=== PATIENT | male | born 1965 | race Caucasian/White ===

== ENCOUNTER 2021-08-19 13:51 | Outpatient (CLI) | payer MEDICARE, MEDICAID, SELFPAY | END 2021-08-19 13:52 | disposition home or self-care (01) | PROVIDERS: PCP Family Medicine Sports Medicine | DX: H90.6 Mixed conductive and sensorineural hearing loss, bilateral (principal) | CPT/HCPCS: 92557; 92567 ==

== ENCOUNTER 2021-10-12 10:38 | Outpatient (RCR) | payer MEDICARE, MEDICAID, SELFPAY | END 2021-10-12 23:59 | disposition home or self-care (01) | LOC: ANHAUDIO 10:38 | PROVIDERS: PCP Family Medicine Sports Medicine; Visit Provider Family Medicine Sports Medicine | DX: Z46.1 Encounter for fitting and adjustment of hearing aid (principal) | CPT/HCPCS: V5014; V5261; V5264 ==

== ENCOUNTER 2024-12-11 11:49 | Outpatient (RCR) | payer SELFPAY | END 2024-12-11 23:59 | disposition home or self-care (01) | LOC: ANHAUDIO 11:49 | PROVIDERS: PCP Family Medicine Sports Medicine | DX: Z46.1 Encounter for fitting and adjustment of hearing aid (principal) | CPT/HCPCS: 92593 ==